=== PATIENT | male | born 1965 | race Caucasian/White ===

== ENCOUNTER 2021-09-07 14:18 | Emergency (ER) | payer OTHER ==
[~2021-09-07] VITALS: Ht 182.8 cm; Wt 120.2 kg
[2021-09-07 14:52] LABS: BASO % 0.7 % (0.0-1.0); EOS # 0.6 10*3/uL (0.0-0.4); EOS % 9.7 % (1.0-4.0); HEMATOCRIT 43.2 % (42.0-52.0); LYMPH # 1.1 10*3/uL (1.3-4.4); MEAN CELL VOLUME 86.2 fl (80.0-94.0); MEAN CORPUSCULAR HGB 28.7 pg (27.0-31.0); MEAN CORPUSCULAR HGB CONC 33.3 g/dl (33.0-37.0); MEAN PLATELET VOLUME 12.3 fl (9.6-12.3); MONO # 0.5 10*3/uL (0.1-1.0); MONO % 9.2 % (3.0-9.0); NEUT # 3.5 10*3/uL (2.3-7.9); NEUT % 61.1 % (47.0-73.0); PLATELET COUNT AUTOMATED 194 10*3/uL (130-400); RED BLOOD COUNT 5.01 10*6/uL (4.50-5.90); RED CELL DISTRI WIDTH 13.8 % (0-14.5); WHITE BLOOD COUNT 5.8 10*3/uL (4.8-10.8)
[2021-09-07 15:03] LABS: ACT PARTIAL THROMBO TIME 27.7 SECONDS (20.0-32.1)
[2021-09-07 15:04] LABS: BUN 20 mg/dl (7-24); CHLORIDE 110 mmol/L (98-107); CREATININE 1.35 mg/dL (0.70-1.30); POTASSIUM 4.1 mmol/L (3.5-5.1); SODIUM 142 mmol/L (136-145)
== END 2021-09-07 16:32 | disposition home or self-care (01) ==
LOC: ED 14:18
PROVIDERS: Emergency Medicine
DX: S81.012A Laceration without foreign body, left knee, initial encounter (principal); W29.3XXA Contact with powered garden and outdoor hand tools and machinery, initial encounter; Y93.89 Activity, other specified; Y92.89 Other specified places as the place of occurrence of the external cause; Y99.9 Unspecified external cause status